=== PATIENT | female | born 1940 | race Caucasian/White ===

== ENCOUNTER 2018-06-05 09:07 | Emergency (ER) | payer OTHER ==
[~2018-06-05] VITALS: Ht 149.9 cm; Wt 84.4 kg
[~2018-06-05 09:07] MED LIST: ALTACE5 MG PO; GLUCOPHAGE XR500 MG PO; PERCOCET 5/321 UDTAB PO
== END 2018-06-05 12:01 | disposition home or self-care (01) ==
LOC: ER 09:07
DX: R05 Cough (principal)

== ENCOUNTER 2022-01-22 14:26 | Emergency (ER) | payer OTHER ==
[~2022-01-22] VITALS: Ht 149.9 cm; Wt 81.6 kg
== END 2022-01-22 21:15 | disposition home or self-care (01) ==
LOC: ER 14:26
DX: U07.1 COVID-19 (principal); I10 Essential (primary) hypertension; E11.9 Type 2 diabetes mellitus without complications; Z79.899 Other long term (current) drug therapy

== ENCOUNTER 2022-01-28 07:49 | Outpatient (CLI) | payer OTHER | END 2022-01-28 09:30 | disposition home or self-care (01) | LOC: ASH CLINIC 07:49 | PROVIDERS: ATTEND General Practice | DX: U07.1 COVID-19 (principal) ==

== ENCOUNTER 2022-09-10 13:31 | Emergency (ER) | payer OTHER ==
[~2022-09-10] VITALS: Ht 139.7 cm; Wt 82.6 kg
== END 2022-09-10 18:05 | disposition home or self-care (01) ==
LOC: ER 13:31
DX: R53.81 Other malaise (principal); E11.9 Type 2 diabetes mellitus without complications; Z79.84 Long term (current) use of oral hypoglycemic drugs; I10 Essential (primary) hypertension

== ENCOUNTER 2022-10-21 21:28 | Emergency (ER) | payer OTHER ==
[~2022-10-21] VITALS: Ht 139.7 cm; Wt 84.4 kg
[2022-10-21] MEDS ORDERED: GABAPENTIN400 MG (21:40)
[2022-10-21] MEDS ORDERED: IRBESARTAN-HCT1 EACH (21:40)
== END 2022-10-21 23:51 | disposition home or self-care (01) ==
LOC: ER 21:28
DX: S62.663A Nondisplaced fracture of distal phalanx of left middle finger, initial encounter for closed fracture (principal); S62.635A Displaced fracture of distal phalanx of left ring finger, initial encounter for closed fracture; W22.8XXA Striking against or struck by other objects, initial encounter; Y93.89 Activity, other specified; Y92.015 Private garage of single-family (private) house as the place of occurrence of the external cause; S62.667A Nondisplaced fracture of distal phalanx of left little finger, initial encounter for closed fracture

== ENCOUNTER 2024-01-08 13:52 | Emergency (ER) | payer OTHER ==
[~2024-01-08] VITALS: Ht 149.9 cm; Wt 82.6 kg
[~2024-01-08 13:52] MED LIST changes: +GABAPENTIN400 MG; +IRBESARTAN-HCT1 EACH
[2024-01-08] MEDS ORDERED: METFORMIN HCL500 M3 (14:06)
[2024-01-08] MEDS ORDERED: PAXIL20 MG (14:08)
[2024-01-08] MEDS ORDERED: CITALOPRAM HBR20 MG (14:08)
[2024-01-08 18:53] LABS: HEMATOCRIT 32.9 % (36.0-45.00); HEMOGLOBIN 11.2 g/dL (12.0-15.00); MEAN CELL VOLUME 90.5 fL (80.00-100.00); MEAN CORPUSCULAR HEMOGLOBIN 30.8 pg (27.00-32.0); PLATELET COUNT 267 K/uL (150-450); RED BLOOD COUNT 3.63 M/uL (4.00-6.00); RED CELL DISTRIBUTION WIDTH 14.2 % (11.5-14.5)
== END 2024-01-08 22:10 | disposition home or self-care (01) ==
LOC: ER 13:52
PROVIDERS: Emergency Medicine
DX: B34.9 Viral infection, unspecified (principal)